=== PATIENT | male | born 1995 | race Caucasian/White ===

== ENCOUNTER 2021-09-21 22:29 | Emergency (ER) | payer BC ==
[~2021-09-21] VITALS: Ht 182.9 cm; Wt 115.9 kg
[2021-09-21 22:48] VITALS: BP 160/99
[2021-09-21] MEDS ORDERED: SULF1TAB49 PO (23:54)
[2021-09-21] MEDS ORDERED: triamcinolone acetonide 40mg/ml inj IM ONE (23:55)
[2021-09-21] MEDS ORDERED: dexamethasone 4mg/ml inj IM ONE (23:55)
[2021-09-21] MEDS ORDERED: ondansetron 4mg rapidly disintigrating tab PO ONE (23:55)
[2021-09-21] MEDS ORDERED: sulfamethoxazole/trimethoprim DS (800/160mg) tablet PO ONE (23:55)
== END 2021-09-22 00:14 | disposition home or self-care (01) ==
LOC: ER 22:30
DX: R21 Rash and other nonspecific skin eruption (principal); L29.9 Pruritus, unspecified
CPT/HCPCS: 96372; 99284; J1100; J3301